=== PATIENT | male | born 1955 | race Caucasian/White ===

== ENCOUNTER 2016-06-28 19:25 | Emergency (ER) | payer BC, OTHER ==
[~2016-06-28] VITALS: Ht 180.3 cm; Wt 90.7 kg
[~2016-06-28 19:25] MED LIST: DILA2TAB2 PO; IBUP-238 PO; LORT7.5T3 PO; PRAV20TA67 PO; PROM25TA5 PO; TAMS0.4C67 PO
[2016-06-28 19:34] VITALS: BP 149/94; PULSE 71; RESP 18; TEMP 98.8; O2SAT 97
[2016-06-28 19:45] VITALS: BP 166/81; PULSE 80; RESP 18; O2SAT 97
[2016-06-28] MEDS ORDERED: KETOROLAC TROMETHAMINE 30 MG/ML (IVP) VIAL IV PUSH ONE (20:00)
[2016-06-28] MEDS ORDERED: SODIUM CHLOR 0.9% 1000 ML INJ 1,000 ML IV ONE (20:00)
[2016-06-28 20:13] LABS: AUTOMATED NEUTROPHIL # 6.2 TH/MM3 (1.8-7.7); BASOPHIL # 0.1 TH/MM3 (0-0.2); BASOPHIL % 0.6 % (0.0-2.0); EOSINOPHIL # 0.1 TH/MM3 (0-0.4); EOSINOPHIL % 1.3 % (0.0-4.0); HEMATOCRIT 43.2 % (39.0-51.0); HEMO FLAGS DIFF FINAL; LYMPHOCYTE # 2.1 TH/MM3 (1.0-4.8); MEAN CELL VOLUME 91.7 FL (80.0-100.0); MEAN CORPUSCULAR HEMOGLOBIN 30.4 PG (27.0-34.0); MEAN CORPUSCULAR HGB CONC 33.2 % (32.0-36.0); MONO % 9.3 % (0.0-8.0); NEUT % 66.8 % (16.0-70.0); PLATELET COUNT 309 TH/MM3 (150-450); RED BLOOD COUNT 4.71 MIL/MM3 (4.50-5.90); RED CELL DISTRIBUTION WIDTH 12.4 % (11.6-17.2); WHITE BLOOD COUNT 9.4 TH/MM3 (4.0-11.0)
[2016-06-28 20:21] LABS: BICARBONATE 27.5 MEQ/L (21.0-32.0)
[2016-06-28 20:41] LABS: BLOOD, URINE LARGE (NEG); GLUCOSE,URINE NEG (NEG); KETONE, URINE NEG (NEG); NITRITE,URINE NEG (NEG)
[2016-06-28 20:45] LABS: URINE COLOR YELLOW (YELLW/STRAW)
[2016-06-28 20:47] LABS: COMMENT (UR) CULT NOT INDICATED; CULTURE IF INDICATED CULT NOT INDICATED; WBC, URINE 0-2 /hpf (0-5)
[2016-06-28 21:00] VITALS: BP 145/78; PULSE 78; RESP 18; O2SAT 98
[2016-06-28 21:02] VITALS: RESP 17
--- NOTE | 2016-06-28 21:08 | RADHPO ---
EXAM DATE/TIME: 06/28/2016 20:44 [place] COMPARISON: No previous studies available for comparison. INDICATIONS : Left flank pain for three days. ORAL CONTRAST: No oral contrast ingested. RADIATION DOSE: 19.31 CTDIvol (mGy) MEDICAL HISTORY : Hypertension. SURGICAL HISTORY : None. ENCOUNTER: Initial ACUITY: 3 days PAIN SCALE: 8/10 LOCATION: Left flank TECHNIQUE: Volumetric scanning of the abdomen and pelvis was performed. Using automated exposure control and ad justment of the mA and/or kV according to patient size, radiation dose was kept as low as reasonably achievable to obtain optimal diagnostic quality images. FINDINGS: There is an approximately 4 mm x 6 mm calculus in the proximal ureter resulting in a left sided obstr uctive uropathy and moderate left hydronephrosis with left perinephric stranding. Several tiny 1 mm c alculi lower pole left kidney. No right-sided renal calculi or obstructive uropathy. Lung bases clear. No acute finding the liver, spleen, adrenals or pancreas. No free fluid. No bowel o bstruction. Prostate enlarged. CONCLUSION: 1. 4 mm x 6 mm calculus in proximal left ureter resulting in left sided obstructive uropathy and mode rate left hydronephrosis. The right kidney unremarkable. No bladder calculi. Alfredo Tineo MD on June 28, 2016 at 21:04 Board Certified Radiologist. This report was verified electronically.
[2016-06-28] MEDS ORDERED: HYDR-3533 PO (21:32)
[2016-06-28] MEDS ORDERED: TAMS5CAP PO (21:32)
[2016-06-28] MEDS ORDERED: CIPR-9 PO (21:32)
--- NOTE | 2016-06-28 21:32 | PD ---
HPI Chief Complaint: Flank/Kidney Pain Time Seen by Provider: 19:45 Travel History International Travel<30 days: No Contact w/Intl Traveler<30days: No Traveled to known affect area: No History of Present Illness HPI Patient is a 61 year old male who comes in complaining of left flank pain. He has history of renal stones in the past, requiring lithotripsy in the past. He says the pain started 2 days ago and seems to be getting worse. He has not taken anything for pain. He has had some nausea, but no vomiting. He denies any urinary symptoms. He denies fever or chills. PFSH Past Medical History Cardiovascular Problems: No High Cholesterol: Yes Diminished Hearing: No Hypertension: Yes Kidney Stones: Yes Tetanus Vaccination: > 5 Years Influenza Vaccination: No PNEUMOCCOCAL Vaccine (Year): 2 ?: Not Past Surgical History Genitourinary Surgery: Yes (KIDNEY STONE REMOVED) Other Surgery: Yes (CHEEKBONE) Social History Alcohol Use: Yes (GLASS OF WINE WEEKLY; 5 BEERS DAILY ON SAT & SUN) Tobacco Use: No Substance Use: No Allergies-Medications (Allergen,Severity, Reaction): Uncoded Allergies: pine pollen (Allergy, Intermediate, Sneezing, 06/28/16) Reported Meds & Prescriptions Reported Meds & Active Scripts Active No Active Prescriptions or Reported Medications Review of Systems Except as stated in HPI: all other systems reviewed are Neg General / Constitutional: No: Fever, Chills HENT: No: Headaches, Lightheadedness Cardiovascular: No: Chest Pain or Discomfort Respiratory: No: Shortness of Breath Gastrointestinal: Positive: Nausea, No: Vomiting, Abdominal Pain Genitourinary: Positive: Flank Pain, No: Urgency, Frequency, Dysuria Skin: No Rash, No Change in Pigmentation Neurologic: No: Weakness, Dizziness Physical Exam Narrative GENERAL: Awake and alert, in no acute distress. SKIN: Focused skin assessment warm/dry. HEAD: Atraumatic. Normocephalic. EYES: Pupils equal and round. No scleral icterus. ENT: Mucous membranes pink and moist. NECK: Trachea midline. No JVD. CARDIOVASCULAR: Regular rate and rhythm. No murmur appreciated. RESPIRATORY: No accessory muscle use. Clear to auscultation. Breath sounds equal bilaterally. GASTROINTESTINAL: Abdomen soft, non-tender, nondistended. Very mild left CVA tenderness. MUSCULOSKELETAL: No obvious deformities. No clubbing. No cyanosis. No edema. NEUROLOGICAL: Awake and alert. No obvious cranial nerve deficits. Motor grossly within normal limits. Normal speech. PSYCHIATRIC: Appropriate mood and affect; insight and judgment normal. Data Data Last Documented VS Vital Signs Date Time Temp Pulse Resp B/P Pulse Ox O2 Delivery O2 Flow Rate FiO2 06/28/16 21:02 17 06/28/16 21:00 78 145/78 98 Room Air 06/28/16 19:34 98.8 Orders Complete Blood Count With Diff (06/28/16 19:51) Basic Metabolic Panel (Bmp) (06/28/16 19:51) Urinalysis - C+S If Indicated (06/28/16 19:51) Ct Abd/Pel W/O Iv Contrast (06/28/16 ) Sodium Chlor 0.9% 1000 Ml Inj (Ns 1000 M (06/28/16 20:00) Ketorolac Inj (Toradol Inj) (06/28/16 20:00) Iv Access Insert/Monitor (06/28/16 19:51) Labs Laboratory Tests Test 06/28/16 06/28/16 20:00 20:24 White Blood Count 9.4 TH/MM3 Red Blood Count 4.71 MIL/MM3 Hemoglobin 14.3 GM/DL Hematocrit 43.2 % Mean Corpuscular Volume 91.7 FL Mean Corpuscular Hemoglobin 30.4 PG Mean Corpuscular Hemoglobin 33.2 % Concent Red Cell Distribution Width 12.4 % Platelet Count 309 TH/MM3 Mean Platelet Volume 6.3 FL Neutrophils (%) (Auto) 66.8 % Lymphocytes (%) (Auto) 22.0 % Monocytes (%) (Auto) 9.3 % Eosinophils (%) (Auto) 1.3 % Basophils (%) (Auto) 0.6 % Neutrophils # (Auto) 6.2 TH/MM3 Lymphocytes # (Auto) 2.1 TH/MM3 Monocytes # (Auto) 0.9 TH/MM3 Eosinophils # (Auto) 0.1 TH/MM3 Basophils # (Auto) 0.1 TH/MM3 CBC Comment DIFF FINAL Differential Comment Sodium Level 139 MEQ/L Potassium Level 4.0 MEQ/L Chloride Level 103 MEQ/L Carbon Dioxide Level 27.5 MEQ/L Anion Gap 9 MEQ/L Blood Urea Nitrogen 18 MG/DL Creatinine 1.50 MG/DL Estimat Glomerular Filtration 48 ML/MIN Rate Random Glucose 105 MG/DL Calcium Level 8.7 MG/DL Urine Color YELLOW Urine Turbidity CLEAR Urine pH 6.0 Urine Specific Vera 1.021 Urine Protein TRACE mg/dL Urine Glucose (UA) NEG mg/dL Urine Ketones NEG mg/dL Urine Occult Blood LARGE Urine Nitrite NEG Urine Bilirubin NEG Urine Leukocyte Esterase NEG Urine RBC 10-14 /hpf Urine WBC 0-2 /hpf Microscopic Urinalysis Comment CULT NOT INDICATED MDM Medical Decision Making Medical Screen Exam Complete: Yes Emergency Medical Condition: Yes Medical Record Reviewed: Yes Differential Diagnosis Renal stone versus UTI versus pyelonephritis Narrative Course Patient is a 7-year-old male comes in complaining of left flank pain. Exam shows very mild left CVA tenderness. IV established, labs sent. Patient given IV fluids and Toradol. The creatinine of 1.5, this is up from 1.24 2 years ago. Urinalysis is positive for blood. CT abdomen and pelvis shows a 4 x 6 mm obstructing stone on the left with moderate hydronephrosis. There is stranding around the left kidney. I spoke with Dr. Marks of urology, who is the patient's urologist, who suggests discharge with pain medicine and Flomax and he will see him in the office tomorrow. Patient given prescriptions for Cipro due to. Infection as well as Flomax and Lortab. Advised to stay hydrated. Advised to call his urologist tomorrow morning and make an appointment. Advised to return to the ED as needed for any worsening symptoms. Diagnosis Primary Impression: Kidney stone Patient Instructions: General Instructions, Kidney Stones (ED) Additional Instructions: Take Ibuprofen for pain. If you have severe pain, take Lortab. Take your antibiotic. Take the Flomax daily. Drink plenty of fluids. Follow up with urology tomorrow. Return to the ED as needed for any worsening symptoms. Scripts Hydrocodone-Acetaminophen (Lortab)5-325 Mg Tab1 Tab PO Q6H PRN (PAIN) #15 TAB Ref 0 Prov:Jael Del Valle MD 06/28/16 Ciprofloxacin (Cipro)500 Mg Sjp729 Mg PO BID 7 Days Ref 0 Prov:Jael Del Valle MD 06/28/16 Tamsulosin (Flomax)0.4 Mg Cap0.4 Mg PO HS 7 Days Ref 0 Prov:Jael Del Valle MD 06/28/16 Disposition: 01 DISCHARGE HOME Condition: Stable Jael Del Valle MD June 28, 2016 21:32
[2016-06-28 21:45] VITALS: BP 149/79
== END 2016-06-28 21:46 | disposition home or self-care (01) ==
LOC: PHED 19:25
DX: N20.0 Calculus of kidney (principal); N13.30 Unspecified hydronephrosis; R11.0 Nausea; E78.00 Pure hypercholesterolemia, unspecified; I10 Essential (primary) hypertension
CPT/HCPCS: 74176; 80048; 81001; 85025; 96361; 96374; 99284; J1885; J7030